=== PATIENT | male | born 1970 | race African-American/Black ===

== ENCOUNTER 2022-12-20 12:18 | Emergency (ER) | payer MEDICARE, MEDICAID ==
[~2022-12-20] VITALS: Ht 177.8 cm; Wt 87.0 kg
[~2022-12-20 12:18] MED LIST: CINA30; CLON0.1T; CLON0.5T4; ESOM40CA; KALET2; LISI40TA13; MINO10TA; NIFE30TA23; PHEN100C12; [UNRECOGNIZED DRUG - CODE]
[2022-12-20 13:25] LABS: BASOPHILS % 1.8 % (0.0-2.0); DIFFERENTIAL COMMENT 0; EOSINOPHILS % 2.5 % (0.0-5.0); HEMATOCRIT. 26.3 % (42.0-52.0); HEMOGLOBIN. 8.3 g/dL (14.0-18.0); LYMPHOCYTES % 17.1 % (20.0-50.0); MEAN CORPUSCULAR HEMOGLOBIN 22.9 pg (28.0-32.0); MEAN CORPUSCULAR HGB CONC 31.6 g/dL (31.0-37.0); MEAN CORPUSCULAR VOLUME 72.3 fL (80.0-94.0); MEAN PLATELET VOLUME 8.8 fl (7.4-10.4); MONOCYTES % 9.1 % (2.0-8.0); NEUTROPHILS % 69.5 % (40.0-76.0); PLATELET 221 x1000/uL (130-400); RED BLOOD CELL COUNT 3.64 mill/uL (4.7-6.1); RED CELL DISTRIBUTION WIDTH 18.2 % (11.6-14.6); WHITE BLOOD COUNT 9.9 x1000/uL (4.5-11.0)
[2022-12-20 13:38] LABS: CHLORIDE 97 mEq/L (98-107); INDEX HEMOLYSI 1 (1-3); INDEX ICTERIC 1 (1-4); INDEX LIPEMIC 1 (1-3); POTASSIUM 5.3 mEq/L (3.5-5.1); SODIUM 135 mEq/L (136-145)
[2022-12-20 13:45] LABS: ALANINE AMINOTRANSFERASE 9 IU/L (13-61); ASPARTATE AMINOTRANSFERASE 18 IU/L (15-37); BILIRUBIN TOTAL 0.6 mg/dL (0.1-1.0); CALCIUM 6.5 mg/dL (8.5-10.1); CARBON DIOXIDE 22 mEq/L (21-32); GLUCOSE 91 mg/dL (70-105); PROTEIN TOTAL 8.6 g/dL (6.0-8.3)
[2022-12-20 13:49] VITALS: PULSE 141; RESP 15
[2022-12-20] MEDS ORDERED: PROPOFOL 10MG/ML 100ML 100 ML IV SCH ×2 (13:56→14:15)
[2022-12-20] MEDS ORDERED: IOHEXOL-350 100 ML BOTTLE ONE (14:00)
[2022-12-20 14:01] VITALS: O2SAT 96
[2022-12-20 14:04] VITALS: TEMP 98.4
[2022-12-20] MEDS ORDERED: FENTANYL CITRATE/PF 50MCG/ML 2ML VIAL IV NR (14:15)
[2022-12-20 14:23] VITALS: BP 218/127; PULSE 142; RESP 15
[2022-12-20 15:04] LABS: CREATININE 15.7 mg/dL (0.6-1.3); UREA NITROGEN BLOOD 81 mg/dL (7-21)
== END 2022-12-20 14:28 | disposition short-term general hospital (02) ==
LOC: ER 13:57
DX: S10.83XA Contusion of other specified part of neck, initial encounter (principal); I12.0 Hypertensive chronic kidney disease with stage 5 chronic kidney disease or end stage renal disease; N18.6 End stage renal disease; Z99.2 Dependence on renal dialysis; Z98.890 Other specified postprocedural states; V89.2XXA Person injured in unspecified motor-vehicle accident, traffic, initial encounter; W22.19XA Striking against or struck by other automobile airbag, initial encounter; Y93.89 Activity, other specified; Y92.89 Other specified places as the place of occurrence of the external cause; Y99.8 Other external cause status
CPT/HCPCS: 94002; 71045; 96374; 80053; 85025; 36415; 71275; 70498; 70450; 31500 ×2; 99285; J3010; Q9967; J2704; 99152; A4315